=== PATIENT | male | born 1940 | race Hispanic/Latino ===

== ENCOUNTER 2021-03-26 12:21 | Inpatient (IN) | payer MEDICARE ==
[~2021-03-26] VITALS: Ht 152.4 cm; Wt 55.8 kg
[2021-03-26] MEDS ORDERED: ONDANSETRON HCL INJ 2MG/ML 2ML 2 MG/ML VIAL IV STA (13:41)
[2021-03-26] MEDS ORDERED: SODIUM CHLORIDE 0.9% 1000ML 1,000 ML IV SCH (13:45)
[2021-03-26] MEDS ORDERED: ONDANSETRON HCL INJ 2MG/ML 2ML 2 MG/ML VIAL ONE (14:33)
[2021-03-26] MEDS ORDERED: SODIUM CHLORIDE 0.9% 1000ML 1,000 ML ONE (14:33)
[2021-03-26] MEDS: DEXAMETHASONE SOD PHOS INJ 4 MG/ML SDV IV SCH (15:50)
[2021-03-26] MEDS: CEFTRIAXONE 1 GM in SODIUM CHLORIDE 0.9% 50ML 50 ML IV SCH (16:00)
[2021-03-26] MEDS ORDERED: DEXAMETHASONE SOD PHOS INJ 4 MG/ML SDV ONE (16:35)
[2021-03-26] MEDS ORDERED: SODIUM CHLORIDE 0.9% 50ML 50 ML ONE (16:35)
[2021-03-26] MEDS ORDERED: SODIUM CHLORIDE 0.9% 250ML 250 ML ONE (16:35)
[2021-03-26] MEDS ORDERED: CEFTRIAXONE 1 GM VIAL ONE (16:36)
[2021-03-26 16:59] VITALS: BP 147/70
[2021-03-26 17:38] VITALS: BP 147/70
[2021-03-26 19:26] LABS: BASOPHILS % 0.3 % (0.0-1.0); EOSINOPHILS # (AUTO) 0.1 (0.0-0.4); HEMOGLOBIN 13.6 g/dL (14.0-18.0); LYMPHOCYTES # (AUTO) 0.4 (1.0-3.2); LYMPHOCYTES % 5.6 % (18.0-39.1); MEAN CORPUSCULAR HGB CONC 33.2 g/dL (31-35); MEAN CORPUSCULAR VOLUME 90.3 fL (81-99); MONOCYTES # (AUTO) 0.2 (0.2-0.8); MONOCYTES % 2.9 % (4.4-11.3); NEUTROPHILS # (AUTO) 5.9 (2.1-6.9); NEUTROPHILS % 88.1 % (38.7-80.0); PLATELET COUNT 382 x10e3/uL (140-360); RED BLOOD COUNT 4.54 x10e6/uL (4.3-5.7); RED CELL DISTRIBUTION WIDTH 12.2 % (11.7-14.4)
[2021-03-26 19:49] LABS: ALANINE AMINOTRANSFERASE 11 IU/L (0-55); ALBUMIN 2.1 g/dL (3.5-5.0); ALBUMIN/GLOBULIN RATIO 0.5 (0.8-2.0); ALKALINE PHOSPHATASE 55 IU/L (40-150); ANION GAP 12.9 mmol/L (8-16); BLOOD UREA NITROGEN 14 mg/dL (7-26); BUN/CREATININE RATIO 18 (6-25); CALCIUM 8.1 mg/dL (8.4-10.2); CARBON DIOXIDE 23 mmol/L (22-29); CHLORIDE 106 mmol/L (98-107); CREATINE KINASE 53 IU/L (30-200); CREATININE, SERUM 0.79 mg/dL (0.72-1.25); EST GLOMERULAR FILTRATION RATE 95 ML/MIN (60-); GLUCOSE 137 mg/dL (74-118); POTASSIUM 3.9 mmol/L (3.5-5.1); SODIUM 138 mmol/L (136-145)
[2021-03-26 21:00] VITALS: BP 147/70
[2021-03-26 21:04] VITALS: BP 127/59
[2021-03-27] VITALS (9 sets, daily range): BP systolic 124–163; BP diastolic 56–71
[2021-03-27] MEDS: DEXAMETHASONE SOD PHOS INJ 4 MG/ML SDV IV SCH (06:18)
[2021-03-27] MEDS: ASCORBIC ACID 500 MG TAB PO SCH ×2 (09:17→16:39)
[2021-03-27] MEDS: ZINC SULFATE 50 MG CAP PO SCH (09:17)
[2021-03-27] MEDS: CEFTRIAXONE 1 GM in SODIUM CHLORIDE 0.9% 50ML 50 ML IV SCH (09:17)
[2021-03-27] MEDS: APIXAB 2.5 MG TABLET PO SCH ×2 (09:17→16:39)
[2021-03-27] MEDS: CHOLECALCIFEROL 400 UNIT TAB PO SCH (09:17)
[2021-03-27] MEDS ORDERED: SODIUM CHLORIDE 0.9% 100 ML ONE (09:23)
[2021-03-28] VITALS (7 sets, daily range): BP systolic 132–151; BP diastolic 60–80
[2021-03-28] MEDS: DEXAMETHASONE SOD PHOS INJ 4 MG/ML SDV IV SCH (06:00)
[2021-03-28] MEDS ORDERED: CEFTRIAXONE 1 GM VIAL ONE (08:13)
[2021-03-28] MEDS ORDERED: SODIUM CHLORIDE 0.9% 50ML 50 ML ONE (08:19)
[2021-03-28] MEDS: CEFTRIAXONE 1 GM in SODIUM CHLORIDE 0.9% 50ML 50 ML IV SCH (08:45)
[2021-03-28] MEDS: CHOLECALCIFEROL 400 UNIT TAB PO SCH (08:46)
[2021-03-28] MEDS: ZINC SULFATE 50 MG CAP PO SCH (08:46)
[2021-03-28] MEDS: APIXAB 2.5 MG TABLET PO SCH ×2 (08:46→16:45)
[2021-03-28] MEDS: ASCORBIC ACID 500 MG TAB PO SCH ×2 (08:46→16:45)
[2021-03-29] VITALS (7 sets, daily range): BP systolic 117–162; BP diastolic 60–79
[2021-03-29] MEDS: DEXAMETHASONE SOD PHOS INJ 4 MG/ML SDV IV SCH (06:03)
[2021-03-29] MEDS: CEFTRIAXONE 1 GM in SODIUM CHLORIDE 0.9% 50ML 50 ML IV SCH (09:53)
[2021-03-29] MEDS: ASCORBIC ACID 500 MG TAB PO SCH (09:53)
[2021-03-29] MEDS: CHOLECALCIFEROL 400 UNIT TAB PO SCH (09:53)
[2021-03-29] MEDS: ZINC SULFATE 50 MG CAP PO SCH (09:53)
[2021-03-29] MEDS: APIXAB 2.5 MG TABLET PO SCH (09:53)
[2021-03-30] VITALS: BP 168/73
[2021-03-30 04:00] VITALS: BP 122/69
[2021-03-30 08:30] VITALS: BP 132/57
[2021-03-30] MEDS: ASCORBIC ACID 500 MG TAB PO SCH (08:43)
[2021-03-30] MEDS: APIXAB 2.5 MG TABLET PO SCH (08:43)
[2021-03-30] MEDS: CEFTRIAXONE 1 GM in SODIUM CHLORIDE 0.9% 50ML 50 ML IV SCH (08:44)
[2021-03-30] MEDS: ZINC SULFATE 50 MG CAP PO SCH (08:44)
[2021-03-30] MEDS: CHOLECALCIFEROL 400 UNIT TAB PO SCH (08:44)
[2021-03-30 08:46] VITALS: BP 132/57
== END 2021-03-30 11:50 | disposition home or self-care (01) | DRG 177 ==
LOC: FSED 12:25 → ERHOLD 16:14 → IMCU 16:59
PROVIDERS: ADMIT Internal Medicine; ATTEND Internal Medicine
DX: U07.1 COVID-19 (principal); J12.82 Pneumonia due to coronavirus disease 2019; G92.9 Unspecified toxic encephalopathy; N28.1 Cyst of kidney, acquired; R73.9 Hyperglycemia, unspecified; F03.90 Unspecified dementia, unspecified severity, without behavioral disturbance, psychotic disturbance, mood disturbance, and anxiety
CPT/HCPCS: 36415; 70450; 70551; 71250; 80053; 81003; 82550; 82553; 82607; 82746; 84443; 84484; 85025; 93005; 96360; 99251; 99284; J0456; J0696; J1100; J2405; J7030; J7050; U0002

== ENCOUNTER 2021-10-20 17:53 | Inpatient (IN) | payer MEDICARE, OTHER ==
[~2021-10-20] VITALS: Ht 157.5 cm; Wt 64.4 kg
[2021-10-20] MEDS ORDERED: Vancomycin IV 1 GM in SODIUM CHLORIDE 0.9% 250ML 250 ML IV ONE (19:15)
[2021-10-20] MEDS ORDERED: SODIUM CHLORIDE 0.9% 500ML 500 ML ONE (19:29)
[2021-10-20] MEDS ORDERED: SODIUM CHLORIDE 0.9% 100 ML ONE (19:29)
[2021-10-20] MEDS ORDERED: PIPERACILLIN/TAZOBACTAM 3.375 GM VIAL ONE (19:29)
[2021-10-20] MEDS: SODIUM CHLORIDE 0.9% 1000ML 1,000 ML IV SCH ×2 (19:35→23:37)
[2021-10-20] MEDS ORDERED: SODIUM CHLORIDE 0.9% 1000ML 1,000 ML IV SCH (21:15)
[2021-10-20] MEDS ORDERED: Vancomycin IV 1 GM VIAL ONE (21:23)
[2021-10-20] MEDS ORDERED: SODIUM CHLORIDE 0.9% 1000ML 1,000 ML ONE (21:23)
[2021-10-20] MEDS ORDERED: Morphine 2mg Syringe 2 MG/ML SYR IV ONE (22:00)
[2021-10-20] MEDS ORDERED: DIPHENHYDRAMINE HCL INJ 50 MG/ML VIAL IV ONE (22:00)
[2021-10-20] MEDS ORDERED: DIPHENHYDRAMINE HCL INJ 50 MG/ML VIAL ONE (22:03)
[2021-10-20] MEDS ORDERED: Morphine 4mg Syringe 4 MG/ML INJ ONE (22:03)
[2021-10-20 23:00] VITALS: BP 160/114
[2021-10-20 23:30] VITALS: BP 160/114
[2021-10-20] MEDS: HYDRALAZINE HCL 20 MG/ML VIAL IV PRN (23:36)
[2021-10-21] VITALS (7 sets, daily range): BP systolic 145–158; BP diastolic 80–104
[2021-10-21 07:11] LABS: BASOPHILS # (AUTO) 0.1 (0.0-0.1); BASOPHILS % 0.5 % (0.0-1.0); EOSINOPHILS # (AUTO) 1.4 (0.0-0.4); EOSINOPHILS % 10.4 % (0.0-6.0); HEMATOCRIT 48.5 % (38.2-49.6); HEMOGLOBIN 16.4 g/dL (14.0-18.0); LYMPHOCYTES # (AUTO) 0.7 (1.0-3.2); LYMPHOCYTES % 5.3 % (18.0-39.1); MEAN CORPUSCULAR HEMOGLOBIN 29.9 pg (28-32); MEAN CORPUSCULAR HGB CONC 33.8 g/dL (31-35); MEAN CORPUSCULAR VOLUME 88.5 fL (81-99); MONOCYTES # (AUTO) 0.6 (0.2-0.8); MONOCYTES % 4.8 % (4.4-11.3); NEUTROPHILS # (AUTO) 10.3 (2.1-6.9); PLATELET COUNT 212 x10e3/uL (140-360); RED BLOOD COUNT 5.48 x10e6/uL (4.3-5.7); RED CELL DISTRIBUTION WIDTH 12.9 % (11.7-14.4)
[2021-10-21 09:32] LABS: ANION GAP 11.3 mmol/L (8-16); CALCIUM 7.5 mg/dL (8.4-10.2); CREATININE, SERUM 1.07 mg/dL (0.72-1.25); POTASSIUM 4.3 mmol/L (3.5-5.1)
[2021-10-21] MEDS: SODIUM CHLORIDE 0.9% 1000ML 1,000 ML IV SCH (09:49)
[2021-10-21] MEDS ORDERED: FUROSEMIDE INJ 10 MG/ML 4 ML VIAL IV ONE (10:00)
[2021-10-21] MEDS ORDERED: LIDOCAINE HCL 1% LOCAL INJ 20 ML VIAL ONE (13:31)
[2021-10-21 13:49] LABS: INR 1.19; PROTHROMBIN TIME 16.1 seconds (11.9-14.5)
[2021-10-21] MEDS: TRAMADOL HCL 50 MG TAB PO PRN (15:01)
[2021-10-21] MEDS: HYDRALAZINE HCL 20 MG/ML VIAL IV PRN (21:07)
[2021-10-22] VITALS (7 sets, daily range): BP systolic 142–162; BP diastolic 78–96
[2021-10-22] MEDS: SODIUM CHLORIDE 0.9% 1000ML 1,000 ML IV SCH ×2 (05:42→15:44)
[2021-10-22 06:11] LABS: BASOPHILS % 0.3 % (0.0-1.0); EOSINOPHILS # (AUTO) 0.6 (0.0-0.4); EOSINOPHILS % 4.5 % (0.0-6.0); HEMATOCRIT 47.5 % (38.2-49.6); HEMOGLOBIN 16.2 g/dL (14.0-18.0); LYMPHOCYTES # (AUTO) 0.5 (1.0-3.2); LYMPHOCYTES % 3.8 % (18.0-39.1); MEAN CORPUSCULAR HEMOGLOBIN 29.9 pg (28-32); MEAN CORPUSCULAR HGB CONC 34.1 g/dL (31-35); MEAN CORPUSCULAR VOLUME 87.6 fL (81-99); MONOCYTES # (AUTO) 0.6 (0.2-0.8); MONOCYTES % 4.4 % (4.4-11.3); NEUTROPHILS # (AUTO) 11.5 (2.1-6.9); NEUTROPHILS % 86.1 % (38.7-80.0); PLATELET COUNT 252 x10e3/uL (140-360); RED BLOOD COUNT 5.42 x10e6/uL (4.3-5.7)
[2021-10-22 07:03] LABS: ALBUMIN 2.2 g/dL (3.5-5.0); ALBUMIN/GLOBULIN RATIO 0.6 (0.8-2.0); ANION GAP 13.9 mmol/L (8-16); CALCIUM 7.7 mg/dL (8.4-10.2); CREATININE, SERUM 1.22 mg/dL (0.72-1.25); POTASSIUM 3.9 mmol/L (3.5-5.1)
[2021-10-22] MEDS: TRAMADOL HCL 50 MG TAB PO PRN (09:13)
[2021-10-22] MEDS: HYDRALAZINE HCL 20 MG/ML VIAL IV PRN (15:49)
[2021-10-22] MEDS ORDERED: HYDRALAZINE HCL 20 MG/ML VIAL IV PRN (22:00)
[2021-10-22] MEDS ORDERED: MAGNESIUM HYDROXIDE 30 ML UDC PO PRN (22:00)
[2021-10-22] MEDS ORDERED: METOPROLOL TARTRATE INJ 1 MG/ML VIAL IV PRN (22:00)
[2021-10-22] MEDS ORDERED: ONDANSETRON HCL INJ 2MG/ML 2ML 2 MG/ML VIAL IV PRN (22:00)
[2021-10-22] MEDS: HYDROCODONE/APAP 7.5MG-325MG 1 EA TAB PO SCH (22:00)
[2021-10-22] MEDS: METOPROLOL TARTRATE 50 MG TAB PO SCH (23:47)
[2021-10-23] VITALS (7 sets, daily range): BP systolic 98–163; BP diastolic 60–92
[2021-10-23] MEDS ORDERED: METOCLOPRAMIDE HCL 10 MG/2ML VIAL IV SCH (00:30)
[2021-10-23] MEDS ORDERED: Morphine 4mg Syringe 4 MG/ML INJ IV PRN (01:00)
[2021-10-23 05:08] LABS: BASOPHILS % 0.2 % (0.0-1.0); EOSINOPHILS % 5.9 % (0.0-6.0); HEMATOCRIT 48.7 % (38.2-49.6); HEMOGLOBIN 16.6 g/dL (14.0-18.0); LYMPHOCYTES # (AUTO) 0.7 (1.0-3.2); LYMPHOCYTES % 4.2 % (18.0-39.1); MEAN CORPUSCULAR HEMOGLOBIN 30.1 pg (28-32); MEAN CORPUSCULAR HGB CONC 34.1 g/dL (31-35); MEAN CORPUSCULAR VOLUME 88.4 fL (81-99); MONOCYTES # (AUTO) 0.7 (0.2-0.8); MONOCYTES % 4.3 % (4.4-11.3); NEUTROPHILS # (AUTO) 13.6 (2.1-6.9); NEUTROPHILS % 84.4 % (38.7-80.0); PLATELET COUNT 301 x10e3/uL (140-360); RED BLOOD COUNT 5.51 x10e6/uL (4.3-5.7); RED CELL DISTRIBUTION WIDTH 12.9 % (11.7-14.4)
[2021-10-23 05:33] LABS: ANION GAP 15.8 mmol/L (8-16); CALCIUM 7.8 mg/dL (8.4-10.2); CREATININE, SERUM 1.07 mg/dL (0.72-1.25); POTASSIUM 3.8 mmol/L (3.5-5.1)
[2021-10-23] MEDS: METOCLOPRAMIDE HCL 10 MG/2ML VIAL IV SCH ×3 (06:00→17:35)
[2021-10-23] MEDS: HYDROCODONE/APAP 7.5MG-325MG 1 EA TAB PO SCH ×4 (06:00→21:15)
[2021-10-23] MEDS: ENOXAPARIN SOD INJ 40 MG/0.4 ML SYR SC SCH (06:00)
[2021-10-23] MEDS: SODIUM CHLORIDE 0.9% 1000ML 1,000 ML IV SCH (06:06)
[2021-10-23] MEDS ORDERED: FAMOTIDINE 20 MG TAB PO SCH (07:30)
[2021-10-23] MEDS: SENNA-S TABLET PO SCH ×2 (10:29→17:35)
[2021-10-23] MEDS: METOPROLOL TARTRATE 50 MG TAB PO SCH ×2 (10:30→16:04)
[2021-10-23] MEDS: ACETAMINOPHEN 325 MG TAB PO PRN (13:00)
[2021-10-23] MEDS: ALPRAZOLAM 0.5 MG TAB PO PRN ×2 (13:00→21:14)
[2021-10-23 15:59] LABS: BODY FLUID TYPE ASCITES
[2021-10-23 16:01] LABS: BODY FLUID APPEARANCE TURBID; BODY FLUID COLOR RED
[2021-10-23 16:30] LABS: ABG HCO3 18 mmol/L (22-26); ABG PCO2 28 mmHg (35-45); ABG PH 7.41 (7.35-7.45); ABG PO2 70 mmHg (80-105); ABG TCO2 19
[2021-10-23 17:06] LABS: RBC,BODY FLUID 7000 cells/uL; WBC,BODY FLUID 1017 cells/uL
[2021-10-23 18:25] LABS: LYMPHOCYTES,BODY FLUID 31 %; MONO/MACROPHG,BODY FLUID 48 %; NEUTROPHILS,BODY FLUID 21 %
[2021-10-24] VITALS (7 sets, daily range): BP systolic 94–116; BP diastolic 65–80
[2021-10-24] MEDS: METOCLOPRAMIDE HCL 10 MG/2ML VIAL IV SCH ×5 (00:59→23:22)
[2021-10-24] MEDS: ENOXAPARIN SOD INJ 40 MG/0.4 ML SYR SC SCH (06:00)
[2021-10-24] MEDS ORDERED: DEXTROSE 50% SYRINGE 50 ML IV PRN (08:30)
[2021-10-24] MEDS ORDERED: INSULIN GLARGINE 100 UNITS/ML VIAL SQ ONE (08:30)
[2021-10-24] MEDS: METOPROLOL TARTRATE 50 MG TAB PO SCH ×2 (09:00→17:00)
[2021-10-24] MEDS: SENNA-S TABLET PO SCH ×2 (09:00→18:22)
[2021-10-24] MEDS: INSULIN LISPRO 100 UNIT/1 ML 3ML VIAL SQ SCH ×3 (11:30→21:00)
[2021-10-24] MEDS: HYDROCODONE/APAP 7.5MG-325MG 1 EA TAB PO SCH ×2 (12:00→18:30)
[2021-10-24] MEDS: INSULIN GLARGINE 100 UNITS/ML VIAL SQ SCH (21:00)
[2021-10-25] VITALS (8 sets, daily range): BP systolic 104–126; BP diastolic 61–79
[2021-10-25] MEDS: HYDROCODONE/APAP 7.5MG-325MG 1 EA TAB PO SCH ×3 (05:57→18:00)
[2021-10-25] MEDS: ENOXAPARIN SOD INJ 40 MG/0.4 ML SYR SC SCH (05:57)
[2021-10-25] MEDS: METOCLOPRAMIDE HCL 10 MG/2ML VIAL IV SCH ×4 (05:57→23:47)
[2021-10-25 06:51] LABS: BASOPHILS % 0.3 % (0.0-1.0); EOSINOPHILS # (AUTO) 0.7 (0.0-0.4); EOSINOPHILS % 4.7 % (0.0-6.0); HEMATOCRIT 48.4 % (38.2-49.6); HEMOGLOBIN 16.3 g/dL (14.0-18.0); LYMPHOCYTES # (AUTO) 0.6 (1.0-3.2); LYMPHOCYTES % 3.7 % (18.0-39.1); MEAN CORPUSCULAR HEMOGLOBIN 29.8 pg (28-32); MEAN CORPUSCULAR HGB CONC 33.7 g/dL (31-35); MEAN CORPUSCULAR VOLUME 88.5 fL (81-99); MONOCYTES # (AUTO) 0.6 (0.2-0.8); MONOCYTES % 3.5 % (4.4-11.3); NEUTROPHILS # (AUTO) 13.8 (2.1-6.9); PLATELET COUNT 216 x10e3/uL (140-360); RED BLOOD COUNT 5.47 x10e6/uL (4.3-5.7); RED CELL DISTRIBUTION WIDTH 13.2 % (11.7-14.4)
[2021-10-25 07:17] LABS: ALBUMIN/GLOBULIN RATIO 0.6 (0.8-2.0); ANION GAP 16.7 mmol/L (8-16); CALCIUM 7.9 mg/dL (8.4-10.2); CREATININE, SERUM 1.21 mg/dL (0.72-1.25); PHOSPHORUS 2.7 MG/DL (2.3-4.7); POTASSIUM 3.7 mmol/L (3.5-5.1)
[2021-10-25 07:26] LABS: THYROID STIMULATING HORMONE 4.483 uIU/mL (0.350-4.940)
[2021-10-25] MEDS: INSULIN LISPRO 100 UNIT/1 ML 3ML VIAL SQ SCH ×4 (07:30→21:10)
[2021-10-25] MEDS: METOPROLOL TARTRATE 50 MG TAB PO SCH ×2 (09:00→17:00)
[2021-10-25] MEDS: SENNA-S TABLET PO SCH ×2 (09:00→17:00)
[2021-10-25] MEDS: INSULIN GLARGINE 100 UNITS/ML VIAL SQ SCH (21:10)
[2021-10-26] VITALS (7 sets, daily range): BP systolic 101–112; BP diastolic 67–90
[2021-10-26 05:38] LABS: BASOPHILS % 0.2 % (0.0-1.0); EOSINOPHILS # (AUTO) 0.5 (0.0-0.4); EOSINOPHILS % 3.4 % (0.0-6.0); HEMOGLOBIN 16.3 g/dL (14.0-18.0); LYMPHOCYTES # (AUTO) 0.6 (1.0-3.2); LYMPHOCYTES % 4.1 % (18.0-39.1); MEAN CORPUSCULAR HEMOGLOBIN 29.5 pg (28-32); MEAN CORPUSCULAR HGB CONC 33.3 g/dL (31-35); MEAN CORPUSCULAR VOLUME 88.8 fL (81-99); MONOCYTES # (AUTO) 0.5 (0.2-0.8); MONOCYTES % 3.6 % (4.4-11.3); NEUTROPHILS # (AUTO) 12.8 (2.1-6.9); NEUTROPHILS % 87.9 % (38.7-80.0); PLATELET COUNT 196 x10e3/uL (140-360); RED BLOOD COUNT 5.52 x10e6/uL (4.3-5.7); RED CELL DISTRIBUTION WIDTH 13.2 % (11.7-14.4)
[2021-10-26 05:41] LABS: CLARITY,URINE CLOUDY (CLEAR); COLOR,URINE BROWN (YELLOW); KETONES,URINE TRACE (NEGATIVE); LEUKOCYTE ESTERASE ,URINE NEGATIVE (NEGATIVE); NITRITE,URINE POSITIVE (NEGATIVE); PROTEIN,URINE DIPSTICK 2+ (NEGATIVE); URINE UROBILINOGEN 0.2 mg/dL (0.2 - 1)
[2021-10-26] MEDS: HYDROCODONE/APAP 7.5MG-325MG 1 EA TAB PO SCH ×3 (05:45→18:21)
[2021-10-26] MEDS: ENOXAPARIN SOD INJ 40 MG/0.4 ML SYR SC SCH (05:45)
[2021-10-26] MEDS: METOCLOPRAMIDE HCL 10 MG/2ML VIAL IV SCH ×4 (05:45→23:40)
[2021-10-26 06:06] LABS: RBC,URINE >50 /HPF (0-5); WBC,URINE (MAN) 0-5 /HPF (0-5)
[2021-10-26 06:07] LABS: BACTERIA,URINE RARE /HPF; EPITHELIAL CELLS,URINE RARE /LPF
[2021-10-26] MEDS: INSULIN LISPRO 100 UNIT/1 ML 3ML VIAL SQ SCH ×4 (08:30→21:00)
[2021-10-26] MEDS: ONDANSETRON HCL INJ 2MG/ML 2ML 2 MG/ML VIAL IV SCH ×3 (09:11→18:20)
[2021-10-26] MEDS: METOPROLOL TARTRATE 50 MG TAB PO SCH ×2 (09:11→18:21)
[2021-10-26] MEDS: SENNA-S TABLET PO SCH ×2 (09:11→18:20)
[2021-10-26] MEDS ORDERED: GADOBENATE DIMEGLUMINE 1 ML IV ONE (13:55)
[2021-10-26] MEDS ORDERED: INSULIN LISPRO 100 UNIT/1 ML 3ML VIAL SQ SCH (16:30)
[2021-10-26 17:26] LABS: FREE T4 (FREE THYROXINE) 0.65 ng/dL (0.8-1.8); THYROID STIMULATING HORMONE 4.893 uIU/mL (0.350-4.940)
[2021-10-26] MEDS: ALPRAZOLAM 0.5 MG TAB PO PRN (20:44)
[2021-10-26] MEDS: INSULIN GLARGINE 100 UNITS/ML VIAL SQ SCH (21:17)
[2021-10-26] MEDS ORDERED: MELATONIN 3 MG TAB PO SCH (23:45)
[2021-10-27] VITALS (7 sets, daily range): BP systolic 101–139; BP diastolic 61–80
[2021-10-27] MEDS: HYDROCODONE/APAP 7.5MG-325MG 1 EA TAB PO SCH ×3 (06:00→18:00)
[2021-10-27] MEDS: ENOXAPARIN SOD INJ 40 MG/0.4 ML SYR SC SCH (06:30)
[2021-10-27] MEDS: METOCLOPRAMIDE HCL 10 MG/2ML VIAL IV SCH ×3 (06:30→19:20)
[2021-10-27] MEDS: ONDANSETRON HCL INJ 2MG/ML 2ML 2 MG/ML VIAL IV SCH ×3 (07:30→15:57)
[2021-10-27] MEDS: INSULIN LISPRO 100 UNIT/1 ML 3ML VIAL SQ SCH ×4 (07:30→21:00)
[2021-10-27] MEDS: METOPROLOL TARTRATE 50 MG TAB PO SCH ×2 (09:00→17:00)
[2021-10-27] MEDS: SENNA-S TABLET PO SCH ×2 (09:00→17:00)
[2021-10-27] MEDS: INSULIN GLARGINE 100 UNITS/ML VIAL SQ SCH (21:00)
[2021-10-27] MEDS: MELATONIN 3 MG TAB PO SCH (21:00)
[2021-10-28] VITALS (8 sets, daily range): BP systolic 112–120; BP diastolic 63–86
[2021-10-28] MEDS: HYDROCODONE/APAP 7.5MG-325MG 1 EA TAB PO SCH ×3 (06:00→20:36)
[2021-10-28] MEDS: METOCLOPRAMIDE HCL 10 MG/2ML VIAL IV SCH ×4 (06:22→20:16)
[2021-10-28] MEDS: ENOXAPARIN SOD INJ 40 MG/0.4 ML SYR SC SCH (06:22)
[2021-10-28] MEDS: ONDANSETRON HCL INJ 2MG/ML 2ML 2 MG/ML VIAL IV SCH ×3 (07:30→20:19)
[2021-10-28] MEDS: INSULIN LISPRO 100 UNIT/1 ML 3ML VIAL SQ SCH ×4 (07:30→21:22)
[2021-10-28] MEDS: SENNA-S TABLET PO SCH ×2 (09:00→20:16)
[2021-10-28 09:36] LABS: BASOPHILS % 0.2 % (0.0-1.0); EOSINOPHILS # (AUTO) 0.9 (0.0-0.4); EOSINOPHILS % 6.6 % (0.0-6.0); HEMATOCRIT 47.6 % (38.2-49.6); HEMOGLOBIN 15.7 g/dL (14.0-18.0); LYMPHOCYTES # (AUTO) 0.4 (1.0-3.2); LYMPHOCYTES % 3.3 % (18.0-39.1); MEAN CORPUSCULAR HEMOGLOBIN 29.7 pg (28-32); MEAN CORPUSCULAR VOLUME 90.2 fL (81-99); MONOCYTES # (AUTO) 0.3 (0.2-0.8); MONOCYTES % 2.5 % (4.4-11.3); NEUTROPHILS # (AUTO) 11.1 (2.1-6.9); NEUTROPHILS % 86.5 % (38.7-80.0); PLATELET COUNT 146 x10e3/uL (140-360); RED BLOOD COUNT 5.28 x10e6/uL (4.3-5.7); RED CELL DISTRIBUTION WIDTH 13.5 % (11.7-14.4)
[2021-10-28 10:18] LABS: ALBUMIN 1.9 g/dL (3.5-5.0); ALBUMIN/GLOBULIN RATIO 0.6 (0.8-2.0); ANION GAP 11.5 mmol/L (8-16); CALCIUM 7.8 mg/dL (8.4-10.2); CREATININE, SERUM 1.25 mg/dL (0.72-1.25); POTASSIUM 3.5 mmol/L (3.5-5.1)
[2021-10-28] MEDS: METOPROLOL TARTRATE 50 MG TAB PO SCH ×2 (11:19→20:17)
[2021-10-28] MEDS: MELATONIN 3 MG TAB PO SCH (20:42)
[2021-10-28] MEDS: INSULIN GLARGINE 100 UNITS/ML VIAL SQ SCH (21:22)
[2021-10-28] MEDS: ALPRAZOLAM 0.5 MG TAB PO PRN (21:22)
[2021-10-29 04:40] VITALS: BP 112/75
[2021-10-29] MEDS: ENOXAPARIN SOD INJ 40 MG/0.4 ML SYR SC SCH (06:00)
[2021-10-29] MEDS: METOCLOPRAMIDE HCL 10 MG/2ML VIAL IV SCH ×4 (06:00→18:00)
[2021-10-29] MEDS: HYDROCODONE/APAP 7.5MG-325MG 1 EA TAB PO SCH ×3 (06:00→18:00)
[2021-10-29] MEDS: ONDANSETRON HCL INJ 2MG/ML 2ML 2 MG/ML VIAL IV SCH ×3 (08:30→17:30)
[2021-10-29 08:37] VITALS: BP 113/69
[2021-10-29 09:00] VITALS: BP 113/69
[2021-10-29] MEDS: METOPROLOL TARTRATE 50 MG TAB PO SCH ×2 (09:41→18:00)
[2021-10-29] MEDS: SENNA-S TABLET PO SCH ×2 (09:41→18:00)
[2021-10-29] MEDS: INSULIN LISPRO 100 UNIT/1 ML 3ML VIAL SQ SCH ×4 (11:03→21:00)
[2021-10-29 12:21] VITALS: BP 106/63
[2021-10-29 17:16] VITALS: BP 103/64
[2021-10-29 20:00] VITALS: BP 140/62
[2021-10-29] MEDS: MELATONIN 3 MG TAB PO SCH (21:00)
[2021-10-29] MEDS: INSULIN GLARGINE 100 UNITS/ML VIAL SQ SCH (21:00)
[2021-10-30] VITALS (8 sets, daily range): BP systolic 111–140; BP diastolic 51–83
[2021-10-30] MEDS: METOCLOPRAMIDE HCL 10 MG/2ML VIAL IV SCH ×5 (06:00→23:26)
[2021-10-30] MEDS: HYDROCODONE/APAP 7.5MG-325MG 1 EA TAB PO SCH ×4 (06:00→23:26)
[2021-10-30] MEDS: INSULIN LISPRO 100 UNIT/1 ML 3ML VIAL SQ SCH ×4 (08:30→20:54)
[2021-10-30] MEDS: ONDANSETRON HCL INJ 2MG/ML 2ML 2 MG/ML VIAL IV SCH ×3 (08:30→17:30)
[2021-10-30] MEDS: METOPROLOL TARTRATE 50 MG TAB PO SCH ×2 (10:00→17:00)
[2021-10-30] MEDS: SENNA-S TABLET PO SCH ×2 (10:00→17:00)
[2021-10-30] MEDS ORDERED: SODIUM CHLORIDE 0.9% 1000ML 1,000 ML ONE (13:23)
[2021-10-30] MEDS: MELATONIN 3 MG TAB PO SCH (20:53)
[2021-10-30] MEDS: INSULIN GLARGINE 100 UNITS/ML VIAL SQ SCH (20:55)
[2021-10-31] VITALS: BP 122/76
[2021-10-31] MEDS: HYDROCODONE/APAP 7.5MG-325MG 1 EA TAB PO SCH (01:13)
[2021-10-31 04:00] VITALS: BP 121/74
[2021-10-31] MEDS: METOCLOPRAMIDE HCL 10 MG/2ML VIAL IV SCH (05:32)
[2021-10-31] MEDS: ACETAMINOPHEN 325 MG TAB PO PRN (05:33)
[2021-10-31] MEDS: INSULIN LISPRO 100 UNIT/1 ML 3ML VIAL SQ SCH ×2 (07:30→11:30)
[2021-10-31 09:02] VITALS: BP 122/84
[2021-10-31] MEDS: ONDANSETRON HCL INJ 2MG/ML 2ML 2 MG/ML VIAL IV SCH ×2 (09:05→12:26)
[2021-10-31] MEDS: METOPROLOL TARTRATE 50 MG TAB PO SCH (09:06)
[2021-10-31] MEDS: SENNA-S TABLET PO SCH (09:07)
[2021-10-31 09:24] VITALS: BP 122/84
[2021-10-31 13:09] VITALS: BP 128/70
== END 2021-10-31 13:23 | disposition home or self-care (01) | DRG 824 ==
LOC: FSED 18:42 → ERHOLD 19:13 → MED/SURG2 23:01
PROVIDERS: ADMIT Internal Medicine; ATTEND Internal Medicine
PROC: 07B53ZX Excision of Right Axillary Lymphatic, Percutaneous Approach, Diagnostic (ICD-10-PCS; principal; 2021-10-21)
PROC: 0W9G3ZZ Drainage of Peritoneal Cavity, Percutaneous Approach (ICD-10-PCS; 2021-10-23)
DX: C77.3 Secondary and unspecified malignant neoplasm of axilla and upper limb lymph nodes (principal); L03.313 Cellulitis of chest wall; E87.1 Hypo-osmolality and hyponatremia; R18.8 Other ascites; E87.2 Acidosis; C78.6 Secondary malignant neoplasm of retroperitoneum and peritoneum; J91.0 Malignant pleural effusion; C80.1 Malignant (primary) neoplasm, unspecified; K74.60 Unspecified cirrhosis of liver; F03.90 Unspecified dementia, unspecified severity, without behavioral disturbance, psychotic disturbance, mood disturbance, and anxiety; E11.9 Type 2 diabetes mellitus without complications; E86.0 Dehydration; I10 Essential (primary) hypertension; E78.5 Hyperlipidemia, unspecified; F10.21 Alcohol dependence, in remission; E04.1 Nontoxic single thyroid nodule; N28.1 Cyst of kidney, acquired; Z20.822 Contact with and (suspected) exposure to COVID-19
CPT/HCPCS: 36415; 36600; 38505; 49083; 71250; 74176; 74183; 74470; 76536; 76942; 80048; 80053; 81001; 82040; 82105; 82378; 82607; 82746; 82805; 82948; 83036; 83605; 83735; 84100; 84152; 84157; 84439; 84443; 85025; 85610; 86304; 86376; 87040; 87070; 87205; 88112; 88304; 88305; 88342; 89051; 93306; 94799; 96360; 99251; 99284; C1729; J0360; J1200; J1650; J1815; J1940; J2001; J2270; J2405; J2543; J2765; J3370; J7030; J7040; J7050; U0002